=== PATIENT | female | born 1970 | race Hispanic/Latino ===

== ENCOUNTER 2020-08-15 23:43 | Inpatient (IN) | payer OTHER ==
[~2020-08-15] VITALS: Ht 147.3 cm; Wt 70.3 kg
[2020-08-16] VITALS (12 sets, daily range): BP systolic 86–135; BP diastolic 52–90
[2020-08-16 00:43] LABS: BASOPHILS % (AUTO) 0.8 % (0.0-5.0); EOSINOPHILS % (AUTO) 0.3 % (0.0-8.0); HEMATOCRIT 40.2 % (36-48); LYMPHOCYTES % (AUTO) 5.8 % (21.0-51.0); MEAN CORPUSCULAR HEMOGLOBIN 27.2 pg (27.0-33.0); MEAN CORPUSCULAR HGB CONC 34.1 g/dL (32.0-36.0); MEAN CORPUSCULAR VOLUME 79.9 fL (79-99); MONOCYTES % (AUTO) 1.6 % (3.0-13.0); NEUTROPHILS % (AUTO) 90.8 % (40.0-77.0); PLATELET COUNT (AUTO) 33 K/uL (130-400); RED BLOOD CELL COUNT(AUTO) 5.03 MIL/uL (4.00-5.50); RED CELL DISTRIBUTION WIDTH 14.3 % (11.0-15.5); WHITE BLOOD COUNT (AUTO) 10.6 K/uL (4.8-10.8)
[2020-08-16] MEDS ORDERED: NACL 0.9% 1000ML 1,000 ML IV ONE (00:45)
[2020-08-16] MEDS ORDERED: ONDANSETRON 4MG INJ IVP ONE (00:45)
[2020-08-16 00:48] LABS: CREATININE 3.4 mg/dL (0.5-1.5); POTASSIUM 3.3 mmol/L (3.5-5.1)
[2020-08-16 00:52] LABS: ALBUMIN 2.6 g/dL (3.5-5.0); BILIRUBIN,TOTAL 3.3 mg/dL (0.2-1.0); MAGNESIUM 2.1 mg/dL (1.80-2.40); TOTAL PROTEIN, SERUM 7.2 g/dL (6.0-8.3)
[2020-08-16] MEDS ORDERED: ONDANSETRON 4MG INJ ONE (01:15)
[2020-08-16] MEDS ORDERED: NACL 0.9% 1000ML 1,000 ML IV SCH (04:00)
[2020-08-16] MEDS ORDERED: ACETAMINOPHEN 325 MG TAB PO PRN ×2 (04:00)
[2020-08-16] MEDS: NACL 0.9% 1000ML 1,000 ML IV SCH ×2 (04:00→11:59)
[2020-08-16] MEDS ORDERED: ONDANSETRON 4MG INJ IV PRN (04:00)
[2020-08-16] MEDS ORDERED: NITROGLYCERIN 0.4 MG SL TAB SL PRN (04:00)
[2020-08-16 04:15] LABS: HEMOGLOBIN A1C 12.1 % (4.0-6.0)
[2020-08-16] MEDS ORDERED: CEFTRIAXONE 1G VIAL IVP SCH ×2 (05:30→07:45)
[2020-08-16] MEDS ORDERED: GLUCAGON 1MG KIT 1 MG ML IM PRN (05:30)
[2020-08-16] MEDS ORDERED: DEXTROSE 50%-WATER 50 ML DISP.SYRIN IV PRN (05:30)
[2020-08-16] MEDS: INSULIN HUMULIN R 100 UNIT/ML 3ML SQ SCH ×3 (05:30→17:41)
[2020-08-16] MEDS: METRONIDAZOLE 500MG/100ML BAG 100 ML IVPB SCH ×3 (06:52→23:16)
[2020-08-16] MEDS ORDERED: FAMOTIDINE 20MG VIAL IV SCH (09:00)
[2020-08-16 09:16] LABS: BASOPHILS % (AUTO) 0.5 % (0.0-5.0); EOSINOPHILS % (AUTO) 0.4 % (0.0-8.0); LYMPHOCYTES % (AUTO) 5.8 % (21.0-51.0); MEAN CORPUSCULAR HEMOGLOBIN 27.4 pg (27.0-33.0); MEAN CORPUSCULAR HGB CONC 33.9 g/dL (32.0-36.0); MEAN CORPUSCULAR VOLUME 80.9 fL (79-99); MONOCYTES % (AUTO) 1.6 % (3.0-13.0); NEUTROPHILS % (AUTO) 90.9 % (40.0-77.0); PLATELET COUNT (AUTO) 32 K/uL (130-400); RED BLOOD CELL COUNT(AUTO) 4.45 MIL/uL (4.00-5.50); RED CELL DISTRIBUTION WIDTH 14.6 % (11.0-15.5)
[2020-08-16 09:29] LABS: CREATININE 3.3 mg/dL (0.5-1.5)
[2020-08-16 09:33] LABS: BILIRUBIN,TOTAL 3.2 mg/dL (0.2-1.0); TOTAL PROTEIN, SERUM 6.3 g/dL (6.0-8.3)
[2020-08-16 09:47] LABS: POTASSIUM 2.9 mmol/L (3.5-5.1)
[2020-08-16 09:52] LABS: CRP QUANTITATIVE 280.4 mg/L (0.00-9.0)
[2020-08-16 10:29] LABS: APPEARANCE,URINE TURBID (CLEAR); BILIRUBIN,URINE LARGE (NEGATIVE); COLOR,URINE BROWN (YELLOW); GLUCOSE, URINE (UA) 250 mg/dL (NEGATIVE); KETONES,URINE 5 mg/dL (NEGATIVE); LEUKOCYTE ESTERASE ,URINE MODERATE (NEGATIVE); NITRATE,URINE POSITIVE (NEGATIVE); OCCULT BLOOD,URINE MODERATE (NEGATIVE); PROTEIN,URINE >=300 mg/dL (NEGATIVE)
[2020-08-16 10:56] LABS: BACTERIA,URINE Moderate /HPF (None Seen); SQUAMOUS EPITHELIAL CELL,UR Moderate /HPF (0-2); WBC,URINE >100 /HPF (0-1)
[2020-08-16 10:57] LABS: COARSE GRANULAR CASTS,URINE 0-2 /LPF (None Seen)
[2020-08-16] MEDS ORDERED: POTASSIUM CHLORIDE 10% ELIXIR 20 MEQ/15 ML UDCUP ONE (11:59)
[2020-08-16 12:01] LABS: INR 1.09 (0.85-1.15); PROTHROMBIN TIME 11.8 SEC (9.6-11.6)
[2020-08-16 15:07] LABS: HEMATOCRIT 35.7 % (36-48); MEAN CORPUSCULAR HEMOGLOBIN 28.1 pg (27.0-33.0); MEAN CORPUSCULAR HGB CONC 34.2 g/dL (32.0-36.0); MEAN CORPUSCULAR VOLUME 82.3 fL (79-99); PLATELET COUNT (AUTO) 55 K/uL (130-400); RED BLOOD CELL COUNT(AUTO) 4.34 MIL/uL (4.00-5.50); RED CELL DISTRIBUTION WIDTH 14.9 % (11.0-15.5); WHITE BLOOD COUNT (AUTO) 12.1 K/uL (4.8-10.8)
[2020-08-16 15:20] LABS: CREATININE 3.8 mg/dL (0.5-1.5); POTASSIUM 3.1 mmol/L (3.5-5.1)
[2020-08-16 15:40] LABS: BAND NEUTROPHILS % (MANUAL) 17 % (0-2); LYMPHOCYTES % (MANUAL) 4 % (22-44); MAN.DIFF COMMENT-IMPRESSION MANUAL DIFFERENTIAL; MONOCYTES % (MANUAL) 5 % (2-9); SEGMENTED NEUTROPHILS % 74 % (40-70)
[2020-08-16 15:41] LABS: PLATELET MORPHOLOGY COMMENT DECREASED
[2020-08-16] MEDS ORDERED: KCL 20 MEQ ERTAB PO ONE ×2 (21:00→22:53)
[2020-08-17] VITALS (8 sets, daily range): BP systolic 97–130; BP diastolic 56–76
[2020-08-17 05:07] LABS: BASOPHILS % (AUTO) 0.6 % (0.0-5.0); EOSINOPHILS % (AUTO) 0.3 % (0.0-8.0); HEMATOCRIT 37.6 % (36-48); LYMPHOCYTES % (AUTO) 7.6 % (21.0-51.0); MEAN CORPUSCULAR HEMOGLOBIN 27.3 pg (27.0-33.0); MEAN CORPUSCULAR HGB CONC 34.8 g/dL (32.0-36.0); MEAN CORPUSCULAR VOLUME 78.3 fL (79-99); MONOCYTES % (AUTO) 1.5 % (3.0-13.0); NEUTROPHILS % (AUTO) 88.8 % (40.0-77.0); PLATELET COUNT (AUTO) 27 K/uL (130-400); RED CELL DISTRIBUTION WIDTH 14.6 % (11.0-15.5); WHITE BLOOD COUNT (AUTO) 13.1 K/uL (4.8-10.8)
[2020-08-17 05:18] LABS: ALBUMIN 1.9 g/dL (3.5-5.0); BILIRUBIN,TOTAL 3.2 mg/dL (0.2-1.0); CREATININE 4.4 mg/dL (0.5-1.5); INR 1.16 (0.85-1.15); MAGNESIUM 1.9 mg/dL (1.80-2.40); PHOSPHORUS 2.3 mg/dL (2.5-4.9); POTASSIUM 3.3 mmol/L (3.5-5.1); PROTHROMBIN TIME 12.5 SEC (9.6-11.6); TOTAL PROTEIN, SERUM 5.9 g/dL (6.0-8.3); URIC ACID 8.9 mg/dL (2.6-7.2)
[2020-08-17] MEDS: METRONIDAZOLE 500MG/100ML BAG 100 ML IVPB SCH (05:21)
[2020-08-17] MEDS: NACL 0.9% 1000ML 1,000 ML IV SCH ×2 (05:21→18:08)
[2020-08-17] MEDS ORDERED: CEFTRIAXONE 1G VIAL IVP SCH (05:30)
[2020-08-17] MEDS: INSULIN HUMULIN R 100 UNIT/ML 3ML SQ SCH ×5 (06:00→19:48)
[2020-08-17] MEDS: Vitamin B Complex/Vit C/Folic Acid PO SCH (09:11)
[2020-08-17 10:31] LABS: POTASSIUM,URINE RANDOM 45 mmol/L (25-125); SODIUM,URINE RANDOM 37 mmol/l (40-220)
[2020-08-17] MEDS ORDERED: PHARMACY COMMUNICATION MISC SCH (13:15)
[2020-08-17] MEDS: ACETAMINOPHEN 325 MG TAB PO SCH (14:34)
[2020-08-17] MEDS: DiphenhydrAMINE HCL 50 MG/ML VIAL IVP SCH (14:34)
[2020-08-17] MEDS: IMMUNE GLOBULIN GAMMA 10% IV SCH (15:02)
[2020-08-17] MEDS ORDERED: DAPTOMYCIN IV SCH (16:00)
[2020-08-17] MEDS ORDERED: NACL 0.9% IV SCH (16:00)
[2020-08-17] MEDS ORDERED: 0.9%NACL 250ML IVPB SCH (23:00)
[2020-08-17] MEDS ORDERED: DOXYCYCLINE 100MG IVPB (VIAL) IVPB SCH (23:00)
[2020-08-18 04:00] VITALS: BP 100/66
[2020-08-18 05:19] LABS: HEMATOCRIT 36.1 % (36-48); MEAN CORPUSCULAR HEMOGLOBIN 27.1 pg (27.0-33.0); MEAN CORPUSCULAR HGB CONC 34.3 g/dL (32.0-36.0); PLATELET COUNT (AUTO) 29 K/uL (130-400); RED BLOOD CELL COUNT(AUTO) 4.57 MIL/uL (4.00-5.50); RED CELL DISTRIBUTION WIDTH 15.1 % (11.0-15.5); WHITE BLOOD COUNT (AUTO) 13.1 K/uL (4.8-10.8)
[2020-08-18 05:53] LABS: ALBUMIN 1.8 g/dL (3.5-5.0); BILIRUBIN,TOTAL 3.8 mg/dL (0.2-1.0); CREATININE 5.4 mg/dL (0.5-1.5); POTASSIUM 3.5 mmol/L (3.5-5.1); TOTAL PROTEIN, SERUM 6.4 g/dL (6.0-8.3)
[2020-08-18] MEDS: INSULIN HUMULIN R 100 UNIT/ML 3ML SQ SCH ×3 (06:00→18:00)
[2020-08-18 07:10] VITALS: BP 100/67
[2020-08-18] MEDS: Vitamin B Complex/Vit C/Folic Acid PO SCH (08:20)
[2020-08-18 08:30] LABS: HEPATITIS A ANTIBODY IGM Negative (Negative); HEPATITIS B CORE IGM Negative (Negative); HEPATITIS Bs ANTIGEN SCREEN P Negative (Negative)
[2020-08-18] MEDS: NACL 0.9% 1000ML 1,000 ML IV SCH ×2 (08:33→23:11)
[2020-08-18 11:14] VITALS: BP 105/73
[2020-08-18] MEDS ORDERED: 0.9%NACL 250ML 250 ML ONE (11:44)
[2020-08-18] MEDS: DOXYCYCLINE 100MG+NS 250ML 250 ML IV SCH ×2 (11:45)
[2020-08-18] MEDS ORDERED: CEPHALEXIN 500 MG CAPSULE PO SCH (12:30)
[2020-08-18 13:21] LABS: APPEARANCE,URINE SL CLOUDY (CLEAR); BILIRUBIN,URINE LARGE (NEGATIVE); COLOR,URINE BROWN (YELLOW); GLUCOSE, URINE (UA) 100 mg/dL (NEGATIVE); KETONES,URINE 5 mg/dL (NEGATIVE); LEUKOCYTE ESTERASE ,URINE SMALL (NEGATIVE); NITRATE,URINE POSITIVE (NEGATIVE); OCCULT BLOOD,URINE MODERATE (NEGATIVE); PH,URINE 6.5 (5.0-8.0); PROTEIN,URINE >=300 mg/dL (NEGATIVE)
[2020-08-18 13:31] LABS: BACTERIA,URINE Moderate /HPF (None Seen); TRANSITIONAL EPI CELLS,URINE Moderate /HPF (None Seen)
[2020-08-18 13:56] LABS: ALBUMIN 1.9 g/dL (3.5-5.0); BILIRUBIN,DIRECT 3.8 mg/dL (0.0-0.3); BILIRUBIN,TOTAL 4.1 mg/dL (0.2-1.0); TOTAL PROTEIN, SERUM 6.2 g/dL (6.0-8.3)
[2020-08-18] MEDS: ACETAMINOPHEN 325 MG TAB PO SCH (15:03)
[2020-08-18] MEDS: DiphenhydrAMINE HCL 50 MG/ML VIAL IVP SCH (15:04)
[2020-08-18 15:29] VITALS: BP 136/87
[2020-08-18 15:48] LABS: PROTEIN,URINE RANDOM 776.9 mg/dL (0-11.9)
[2020-08-18] MEDS: IMMUNE GLOBULIN GAMMA 10% IV SCH (15:52)
[2020-08-18 19:36] VITALS: BP 142/78
[2020-08-19] VITALS (24 sets, daily range): BP systolic 82–167; BP diastolic 40–108
[2020-08-19 05:53] LABS: MEAN CORPUSCULAR HEMOGLOBIN 27.4 pg (27.0-33.0); MEAN CORPUSCULAR VOLUME 78.2 fL (79-99); PLATELET COUNT (AUTO) 37 K/uL (130-400); RED BLOOD CELL COUNT(AUTO) 4.35 MIL/uL (4.00-5.50); RED CELL DISTRIBUTION WIDTH 15.6 % (11.0-15.5); WHITE BLOOD COUNT (AUTO) 13.8 K/uL (4.8-10.8)
[2020-08-19] MEDS: INSULIN HUMULIN R 100 UNIT/ML 3ML SQ SCH ×5 (06:00→23:30)
[2020-08-19 06:31] LABS: CREATININE 6.6 mg/dL (0.5-1.5); POTASSIUM 3.6 mmol/L (3.5-5.1)
[2020-08-19 09:27] LABS: ALBUMIN 1.9 g/dL (3.5-5.0); BILIRUBIN,DIRECT 4.4 mg/dL (0.0-0.3); BILIRUBIN,TOTAL 5.2 mg/dL (0.2-1.0); THYROID STIMULATING HORMONE 0.27 uIU/mL (0.36-3.74); TOTAL PROTEIN, SERUM 6.8 g/dL (6.0-8.3)
[2020-08-19] MEDS: DOXYCYCLINE HYCLATE 100 MG TABLET PO SCH ×2 (09:33→21:00)
[2020-08-19] MEDS: Vitamin B Complex/Vit C/Folic Acid PO SCH (09:33)
[2020-08-19 09:42] LABS: HEMATOCRIT 33.6 % (36-48); MEAN CORPUSCULAR HEMOGLOBIN 27.3 pg (27.0-33.0); MEAN CORPUSCULAR HGB CONC 34.2 g/dL (32.0-36.0); MEAN CORPUSCULAR VOLUME 79.6 fL (79-99); PLATELET COUNT (AUTO) 38 K/uL (130-400); RED BLOOD CELL COUNT(AUTO) 4.22 MIL/uL (4.00-5.50); WHITE BLOOD COUNT (AUTO) 14.6 K/uL (4.8-10.8)
[2020-08-19 09:53] LABS: INR 1.41 (0.85-1.15); PROTHROMBIN TIME 14.9 SEC (9.6-11.6)
[2020-08-19 10:05] LABS: ABG OXYGEN SATURATION 80.1 % (95.0-99.0); BASE EXCESS,VENOUS BLOOD GAS -18.2 (-2.0-3.0); HCO3,VENOUS BLOOD GAS 7.9 (21.0-28.0); PCO2,VENOUS BLOOD GAS 21 (32-45); PH,VENOUS BLOOD GAS 7.196 (7.350-7.450)
[2020-08-19 10:16] LABS: LYMPHOCYTES % (MANUAL) 11 % (22-44); MONOCYTES % (MANUAL) 6 % (2-9); SEGMENTED NEUTROPHILS % 83 % (40-70)
[2020-08-19 10:17] LABS: MAN.DIFF COMMENT-IMPRESSION MANUAL DIFFERENTIAL; PLATELET MORPHOLOGY COMMENT MARKED DECREASE
[2020-08-19] MEDS ORDERED: LACTATED RINGERS 1000ML 1,000 ML IV ONE (12:12)
[2020-08-19] MEDS ORDERED: LACTATED RINGERS 1000ML 1,000 ML IV SCH (12:15)
[2020-08-19] MEDS: CEFAZOLIN SODIUM 1 GM VIAL IVP SCH ×2 (12:30→23:31)
[2020-08-19] MEDS ORDERED: SODIUM BICARBONATE 650 MG TAB PO SCH (13:00)
[2020-08-19] MEDS ORDERED: PHARMACY COMMUNICATION MISC SCH (13:15)
[2020-08-19] MEDS: SODIUM BICARB 50MEQ 50ML VIAL 150 MEQ in DEXTROSE 5%-WATER 1,000 ML IV SCH (14:06)
[2020-08-19] MEDS: ACETAMINOPHEN 325 MG TAB PO SCH (14:30)
[2020-08-19] MEDS ORDERED: ZINC OXIDE OINT 56.7 GM TP PRN (14:45)
[2020-08-19] MEDS ORDERED: DEXMEDETOMIDINE HCL 400 MCG in 0.9%NACL 100ML 100 ML IV STA (15:10)
[2020-08-19] MEDS ORDERED: MIDAZOLAM HCL 1 MG/ML 2ML VIAL ONE ×2 (15:23→15:28)
[2020-08-19] MEDS ORDERED: FENTANYL CITRATE PF 50 MCG/1 ML 2ML VIAL ONE (15:28)
[2020-08-19] MEDS ORDERED: ACETAMINOPHEN 650 MG SUPPOSITORY RC ONE (16:13)
[2020-08-19] MEDS ORDERED: ACETAMINOPHEN 650 MG SUPPOSITORY RC SCH (16:15)
[2020-08-19] MEDS ORDERED: 0.9%NACL 250ML 250 ML ONE (16:22)
[2020-08-19] MEDS: DiphenhydrAMINE HCL 50 MG/ML VIAL IVP SCH (16:26)
[2020-08-19] MEDS: IMMUNE GLOBULIN GAMMA 10% IV SCH (16:52)
[2020-08-19 17:37] LABS: BASOPHILS % (AUTO) 0.3 % (0.0-5.0); EOSINOPHILS % (AUTO) 0.3 % (0.0-8.0); HEMATOCRIT 27.8 % (36-48); LYMPHOCYTES % (AUTO) 22.8 % (21.0-51.0); MEAN CORPUSCULAR HEMOGLOBIN 27.6 pg (27.0-33.0); MEAN CORPUSCULAR HGB CONC 34.2 g/dL (32.0-36.0); MEAN CORPUSCULAR VOLUME 80.8 fL (79-99); NEUTROPHILS % (AUTO) 72.3 % (40.0-77.0); PLATELET COUNT (AUTO) 75 K/uL (130-400); RED BLOOD CELL COUNT(AUTO) 3.44 MIL/uL (4.00-5.50); RED CELL DISTRIBUTION WIDTH 16.4 % (11.0-15.5)
[2020-08-19 17:48] LABS: POTASSIUM 3.7 mmol/L (3.5-5.1)
[2020-08-19] MEDS ORDERED: DEXMEDETOMIDINE HCL 400 MCG in 0.9%NACL 100ML 100 ML IV SCH (20:30)
[2020-08-19] MEDS: NYSTATIN 15 GM POWDER TP SCH (21:28)
[2020-08-19] MEDS ORDERED: HEPARIN 5,000 UNIT VIAL IV ONE (22:00)
[2020-08-19] MEDS ORDERED: NOREPINEPHRINE 4MG/NS 250ML 250 ML IV SCH (22:00)
[2020-08-19] MEDS ORDERED: NOREPINEPHRINE 4MG/NS 250ML 250 ML IV ONE (22:03)
[2020-08-19] MEDS ORDERED: HEPARIN 5,000 UNIT VIAL ONE (22:06)
[2020-08-20] VITALS (25 sets, daily range): BP systolic 98–150; BP diastolic 53–87
[2020-08-20 03:49] LABS: HEMATOCRIT 25.5 % (36-48); MEAN CORPUSCULAR HEMOGLOBIN 27.2 pg (27.0-33.0); MEAN CORPUSCULAR HGB CONC 35.7 g/dL (32.0-36.0); MEAN CORPUSCULAR VOLUME 76.3 fL (79-99); PLATELET COUNT (AUTO) 33 K/uL (130-400); RED BLOOD CELL COUNT(AUTO) 3.34 MIL/uL (4.00-5.50); RED CELL DISTRIBUTION WIDTH 15.5 % (11.0-15.5); WHITE BLOOD COUNT (AUTO) 11.3 K/uL (4.8-10.8)
[2020-08-20 04:02] LABS: INR 1.4 (0.85-1.15); PROTHROMBIN TIME 14.8 SEC (9.6-11.6)
[2020-08-20 04:03] LABS: ALBUMIN 1.6 g/dL (3.5-5.0); BILIRUBIN,DIRECT 3.1 mg/dL (0.0-0.3); BILIRUBIN,TOTAL 4.4 mg/dL (0.2-1.0); CREATININE 5.1 mg/dL (0.5-1.5); MAGNESIUM 1.9 mg/dL (1.80-2.40); PHOSPHORUS 4.1 mg/dL (2.5-4.9); POTASSIUM 3.3 mmol/L (3.5-5.1); TOTAL PROTEIN, SERUM 6.3 g/dL (6.0-8.3)
[2020-08-20] MEDS: SODIUM BICARB 50MEQ 50ML VIAL 150 MEQ in DEXTROSE 5%-WATER 1,000 ML IV SCH (04:33)
[2020-08-20] MEDS ORDERED: LORAZEPAM 2 MG/ML 1 ML VIAL ONE (04:55)
[2020-08-20] MEDS ORDERED: LORAZEPAM 2 MG/ML 1 ML VIAL IVP PRN ×2 (06:00→19:00)
[2020-08-20] MEDS: INSULIN HUMULIN R 100 UNIT/ML 3ML SQ SCH ×4 (06:00→23:40)
[2020-08-20 07:27] LABS: ABG BASE EXCESS -3.5 mmol/L (-2.0-3.0); ABG HCO3 21.1 mmol/L (21.0-28.0); ABG OXYGEN SATURATION 99.1 % (95.0-99.0); ABG PCO2 37 mmHg (32-45)
[2020-08-20] MEDS ORDERED: RENAL DOSE IV SCH (08:45)
[2020-08-20] MEDS ORDERED: COMPOUND IV MISC 1 EACH IVSOLN MISC PRN (08:45)
[2020-08-20] MEDS: LEVETIRACETAM 500 MG in 0.9%NACL 100ML 100 ML IV SCH (09:31)
[2020-08-20] MEDS: VALPROIC ACID (AS SODIUM SALT) 250 MG in 0.9%NACL 100ML 100 ML IV SCH ×2 (09:32→17:02)
[2020-08-20] MEDS ORDERED: NACL 0.9% 1000ML 1,000 ML IV ONE (09:36)
[2020-08-20] MEDS: Vitamin B Complex/Vit C/Folic Acid PO SCH (10:21)
[2020-08-20] MEDS: NYSTATIN 15 GM POWDER TP SCH ×2 (10:21→20:30)
[2020-08-20] MEDS: DOXYCYCLINE HYCLATE 100 MG TABLET PO SCH ×2 (10:21→20:30)
[2020-08-20 10:37] LABS: INR 1.34 (0.85-1.15); PROTHROMBIN TIME 14.2 SEC (9.6-11.6)
[2020-08-20 10:39] LABS: PARTIAL THROMBOPLASTIN TIME 37.3 SEC (26.3-35.5)
[2020-08-20 10:42] LABS: CRP QUANTITATIVE 64.4 mg/L (0.00-9.0)
[2020-08-20] MEDS: CEFAZOLIN SODIUM 1 GM VIAL IVP SCH ×2 (14:21→23:09)
[2020-08-20] MEDS: SOLU-MEDROL 40MG VIAL IVP SCH (14:21)
[2020-08-21] VITALS (46 sets, daily range): BP systolic 100–157; BP diastolic 39–90
[2020-08-21] MEDS: VALPROIC ACID (AS SODIUM SALT) 250 MG in 0.9%NACL 100ML 100 ML IV SCH ×4 (00:06→23:59)
[2020-08-21 04:09] LABS: BASOPHILS % (AUTO) 0.3 % (0.0-5.0); EOSINOPHILS % (AUTO) 0.3 % (0.0-8.0); HEMATOCRIT 28.8 % (36-48); LYMPHOCYTES % (AUTO) 17.7 % (21.0-51.0); MEAN CORPUSCULAR HEMOGLOBIN 27.2 pg (27.0-33.0); MEAN CORPUSCULAR HGB CONC 34.4 g/dL (32.0-36.0); MEAN CORPUSCULAR VOLUME 79.1 fL (79-99); MONOCYTES % (AUTO) 1.3 % (3.0-13.0); NEUTROPHILS % (AUTO) 79.5 % (40.0-77.0); PLATELET COUNT (AUTO) 48 K/uL (130-400); RED BLOOD CELL COUNT(AUTO) 3.64 MIL/uL (4.00-5.50); RED CELL DISTRIBUTION WIDTH 16.1 % (11.0-15.5); WHITE BLOOD COUNT (AUTO) 15.6 K/uL (4.8-10.8)
[2020-08-21 04:29] LABS: ALBUMIN 1.7 g/dL (3.5-5.0); BILIRUBIN,TOTAL 2.7 mg/dL (0.2-1.0); POTASSIUM 3.6 mmol/L (3.5-5.1); TOTAL PROTEIN, SERUM 7.2 g/dL (6.0-8.3)
[2020-08-21] MEDS: INSULIN HUMULIN R 100 UNIT/ML 3ML SQ SCH ×4 (05:23→23:44)
[2020-08-21 08:15] LABS: HEPATITIS A ANTIBODY IGM Negative (Negative); HEPATITIS B CORE IGM Negative (Negative); HEPATITIS Bs ANTIGEN SCREEN P Negative (Negative)
[2020-08-21] MEDS: DOXYCYCLINE HYCLATE 100 MG TABLET PO SCH ×2 (08:15→20:28)
[2020-08-21] MEDS: Vitamin B Complex/Vit C/Folic Acid PO SCH (08:15)
[2020-08-21] MEDS: NYSTATIN 15 GM POWDER TP SCH ×2 (08:15→20:28)
[2020-08-21] MEDS ORDERED: LEVETIRACETAM 500 MG/5 ML SD VIAL IV ONE (10:04)
[2020-08-21] MEDS: LEVETIRACETAM 500 MG in 0.9%NACL 100ML 100 ML IV SCH (10:05)
[2020-08-21] MEDS: CEFAZOLIN SODIUM 1 GM VIAL IVP SCH ×2 (12:24→23:58)
[2020-08-21] MEDS: SOLU-MEDROL 40MG VIAL IVP SCH ×2 (12:30→20:59)
[2020-08-21] MEDS ORDERED: [UNRECOGNIZED DRUG - OTHER] IV ONE (16:23)
[2020-08-21] MEDS ORDERED: HEPARIN 5,000 UNIT VIAL ONE (16:59)
[2020-08-21] MEDS ORDERED: HEPARIN 5,000 UNIT VIAL IV SCH (17:00)
[2020-08-21 17:10] LABS: ROCKY MT SPOTTED FEVER IGG <1:64 (Neg:<1:64); TYPHUS FEVER AB IGG <1:64 (Neg:<1:64)
[2020-08-22] VITALS (52 sets, daily range): BP systolic 73–144; BP diastolic 30–91
[2020-08-22 04:22] LABS: BASOPHILS % (AUTO) 0.2 % (0.0-5.0); HEMATOCRIT 25.7 % (36-48); LYMPHOCYTES % (AUTO) 11.5 % (21.0-51.0); MEAN CORPUSCULAR HEMOGLOBIN 27.2 pg (27.0-33.0); MEAN CORPUSCULAR HGB CONC 33.1 g/dL (32.0-36.0); MEAN CORPUSCULAR VOLUME 82.4 fL (79-99); MONOCYTES % (AUTO) 1.2 % (3.0-13.0); NEUTROPHILS % (AUTO) 85.7 % (40.0-77.0); PLATELET COUNT (AUTO) 72 K/uL (130-400); RED BLOOD CELL COUNT(AUTO) 3.12 MIL/uL (4.00-5.50); WHITE BLOOD COUNT (AUTO) 12.5 K/uL (4.8-10.8)
[2020-08-22 04:42] LABS: CREATININE 4.1 mg/dL (0.5-1.5); MAGNESIUM 2.1 mg/dL (1.80-2.40); POTASSIUM 3.1 mmol/L (3.5-5.1)
[2020-08-22] MEDS: SOLU-MEDROL 40MG VIAL IVP SCH ×2 (05:19→12:32)
[2020-08-22] MEDS: INSULIN HUMULIN R 100 UNIT/ML 3ML SQ SCH ×3 (05:37→18:00)
[2020-08-22] MEDS ORDERED: PANTOPRAZOLE 40MG INJ 80 MG in 0.9%NACL 100ML 100 ML IVP SCH (05:45)
[2020-08-22] MEDS ORDERED: 0.9%NACL 250ML IVPB SCH (06:15)
[2020-08-22] MEDS ORDERED: PANTOPRAZOLE 40 MG/VIAL IVP SCH ×2 (06:30→21:00)
[2020-08-22 06:31] LABS: FIBRINOGEN 286 mg/dL (180-350)
[2020-08-22 06:32] LABS: INR 1.27 (0.85-1.15); PROTHROMBIN TIME 13.5 SEC (9.6-11.6)
[2020-08-22 06:33] LABS: PARTIAL THROMBOPLASTIN TIME 29.1 SEC (26.3-35.5)
[2020-08-22] MEDS ORDERED: DOXYCYCLINE 100MG+NS 250ML 250 ML IV SCH (07:00)
[2020-08-22] MEDS ORDERED: DOXYCYCLINE 100MG IVPB (VIAL) IVPB SCH (07:00)
[2020-08-22 07:11] LABS: D-DIMER > 10000 ng/mL (0-500)
[2020-08-22] MEDS ORDERED: 0.9%NACL 250ML 250 ML ONE (08:47)
[2020-08-22] MEDS: Vitamin B Complex/Vit C/Folic Acid PO SCH (09:00)
[2020-08-22 09:16] LABS: HEMATOCRIT 24.9 % (36-48)
[2020-08-22] MEDS: NYSTATIN 15 GM POWDER TP SCH (10:36)
[2020-08-22] MEDS: LEVETIRACETAM 500 MG in 0.9%NACL 100ML 100 ML IV SCH (10:47)
[2020-08-22] MEDS: VALPROIC ACID (AS SODIUM SALT) 250 MG in 0.9%NACL 100ML 100 ML IV SCH ×2 (10:49→17:00)
[2020-08-22] MEDS: CEFAZOLIN SODIUM 1 GM VIAL IVP SCH (12:32)
[2020-08-22] MEDS ORDERED: FENTANYL CITRATE PF 50 MCG/1 ML 2ML VIAL ONE (13:40)
[2020-08-22] MEDS ORDERED: PROPOFOL 1000 MG/100 ML 100 ML IV ONE (13:41)
[2020-08-22] MEDS ORDERED: FENTANYL 2500MCG+NS 250ML 250 ML IV STA (13:42)
[2020-08-22] MEDS ORDERED: PROPOFOL 1000 MG/100 ML IV STA (13:42)
[2020-08-22] MEDS ORDERED: MIDAZOLAM HCL 1 MG/ML 2ML VIAL ONE (13:53)
[2020-08-22 14:52] LABS: ABG BASE EXCESS -3.8 mmol/L (-2.0-3.0); ABG HCO3 22.3 mmol/L (21.0-28.0); ABG OXYGEN SATURATION 98.8 % (95.0-99.0); ABG PCO2 44 mmHg (32-45)
[2020-08-22] MEDS ORDERED: FENTANYL 2500MCG+NS 250ML 250 ML IV ONE (15:24)
[2020-08-22 16:02] LABS: ABG BASE EXCESS -0.4 mmol/L (-2.0-3.0); ABG HCO3 24.6 mmol/L (21.0-28.0); ABG PCO2 42 mmHg (32-45)
[2020-08-22] MEDS ORDERED: DIATR MEGLU/DIATRIZOATE SODIUM 30 ML BOTTLE ONE (17:13)
[2020-08-22] MEDS ORDERED: HEPARIN 5,000 UNIT VIAL IV SCH (17:30)
[2020-08-22] MEDS ORDERED: HEPARIN 5,000 UNIT VIAL ONE (17:52)
== END 2020-08-22 18:25 | disposition short-term general hospital (02) | DRG 871 ==
LOC: EDBD 23:43 → EDH 23:43 → EDHIP 23:44 → 3CH 08-16 21:18 → 4CH 08-19 12:10 → 2CH 08-19 15:28
PROVIDERS: ADMIT Internal Medicine; ATTEND Internal Medicine
PROC: 30233R1 Transfusion of Nonautologous Platelets into Peripheral Vein, Percutaneous Approach (ICD-10-PCS; 2020-08-19)
PROC: 02H633Z Insertion of Infusion Device into Right Atrium, Percutaneous Approach (ICD-10-PCS; 2020-08-19)
PROC: B548ZZA Ultrasonography of Superior Vena Cava, Guidance (ICD-10-PCS; 2020-08-19)
PROC: 5A1D70Z Performance of Urinary Filtration, Intermittent, Less than 6 Hours Per Day (ICD-10-PCS; 2020-08-19)
PROC: 30233K1 Transfusion of Nonautologous Frozen Plasma into Peripheral Vein, Percutaneous Approach (ICD-10-PCS; principal; 2020-08-21)
PROC: 5A1D70Z Performance of Urinary Filtration, Intermittent, Less than 6 Hours Per Day (ICD-10-PCS; 2020-08-21)
PROC: 5A1935Z Respiratory Ventilation, Less than 24 Consecutive Hours (ICD-10-PCS; 2020-08-22)
PROC: 0BH17EZ Insertion of Endotracheal Airway into Trachea, Via Natural or Artificial Opening (ICD-10-PCS; 2020-08-22)
DX: A41.89 Other specified sepsis (principal); J18.9 Pneumonia, unspecified organism; J96.90 Respiratory failure, unspecified, unspecified whether with hypoxia or hypercapnia; R65.21 Severe sepsis with septic shock; G93.41 Metabolic encephalopathy; N17.9 Acute kidney failure, unspecified; N39.0 Urinary tract infection, site not specified; L03.311 Cellulitis of abdominal wall; D61.818 Other pancytopenia; D68.9 Coagulation defect, unspecified; K92.0 Hematemesis; E87.2 Acidosis; E11.65 Type 2 diabetes mellitus with hyperglycemia; E86.0 Dehydration; D69.6 Thrombocytopenia, unspecified; E66.9 Obesity, unspecified; E87.6 Hypokalemia; K76.0 Fatty (change of) liver, not elsewhere classified; B95.7 Other staphylococcus as the cause of diseases classified elsewhere; B96.89 Other specified bacterial agents as the cause of diseases classified elsewhere; E11.22 Type 2 diabetes mellitus with diabetic chronic kidney disease; E87.5 Hyperkalemia; I12.9 Hypertensive chronic kidney disease with stage 1 through stage 4 chronic kidney disease, or unspecified chronic kidney disease; B96.20 Unspecified Escherichia coli [E. coli] as the cause of diseases classified elsewhere; K42.9 Umbilical hernia without obstruction or gangrene; K74.60 Unspecified cirrhosis of liver; K75.9 Inflammatory liver disease, unspecified; L98.499 Non-pressure chronic ulcer of skin of other sites with unspecified severity; N18.9 Chronic kidney disease, unspecified; R56.9 Unspecified convulsions; Z68.32 Body mass index [BMI] 32.0-32.9, adult; Z74.01 Bed confinement status
CPT/HCPCS: 31500; 36415; 36430; 36600; 36800; 70450; 71045; 74176; 76700; 80048; 80053; 80074; 80076; 80190; 81001; 82010; 82105; 82140; 82435; 82550; 82570; 82803; 82947; 82948; 83010; 83036; 83520; 83605; 83615; 83690; 83735; 83935; 84100; 84132; 84133; 84145; 84156; 84295; 84300; 84439; 84443; 84481; 84484; 84550; 85014; 85018; 85025; 85027; 85378; 85384; 85610; 85651; 85730; 86038; 86140; 86160; 86215; 86235; 86255; 86334; 86701; 86757; 86850; 86900; 86901; 86927; 87040; 87070; 87076; 87077; 87088; 87186; 87390; 87507; 87635; 87641; 90935; 93005; 93306; 93356; 94002; 99291; C9113; G0378; J0690; J0696; J0878; J1200; J1572; J1644; J1815; J1953; J2060; J2250; J2405; J2704; J2920; J3010; J3490; J7030; J7040; J7050; J7070; J7120; P9012; P9017; P9034; Q9963

== ENCOUNTER 2020-10-21 20:21 | Emergency (ER) | payer OTHER ==
[~2020-10-21] VITALS: Ht 149.9 cm; Wt 81.2 kg
[2020-10-21 20:39] VITALS: BP 130/90
== END 2020-10-21 21:14 | disposition home or self-care (01) ==
LOC: EDH 20:41
DX: K94.23 Gastrostomy malfunction (principal); E11.65 Type 2 diabetes mellitus with hyperglycemia; E66.9 Obesity, unspecified; Z68.30 Body mass index [BMI] 30.0-30.9, adult; Z86.73 Personal history of transient ischemic attack (TIA), and cerebral infarction without residual deficits
CPT/HCPCS: 99281